=== PATIENT | male | born 1945 | race Caucasian/White ===

== ENCOUNTER 2017-01-26 21:27 | Emergency (ER) | payer MEDICARE, BC ==
--- NOTE | 2017-01-26 22:31 | EDM.PDOC ---
ED HPI GENERAL MEDICAL PROBLEM - General Chief Complaint: Eye Problems Stated Complaint: LIGHT HEADED Time Seen by Provider: 01/26/17 22:03 Source of Information: Reports: Patient History Limitations: Reports: No Limitations - History of Present Illness INITIAL COMMENTS - FREE TEXT/NARRATIVE: c/o visual change and neck pain lives alone, watching TV, pain at back of neck and head, not severe, had horizontal lines, could see okay, affected both eyes no n/v, not lightheaded, no CP, no sob h/o SVT 2009, on meds, no reoccurrence angiogram 2y ago was neg never smoked father smoker who age 56 from [place], mother smoker as well - Related Data Allergies Allergy/AdvReac Type Severity Reaction Status Date / Time Unable to Assess Allergy Unverified 01/26/17 21:42 Home Meds: Home Meds Atenolol [Atenolol] 100 mg PO DAILY 01/26/17 [History] Digoxin [Lanoxin] 125 mcg PO ASDIRECTED 01/26/17 [History] Doxazosin Mesylate [Cardura XL] 8 mg PO DAILY 01/26/17 [History] Omeprazole [Omeprazole] 20 mg PO ASDIRECTED 01/26/17 [History] Past Medical History HEENT History: Reports: Impaired Vision Other HEENT History: wears glasses Cardiovascular History: Reports: Afib, Hypertension Gastrointestinal History: Reports: GERD - Infectious Disease History Infectious Disease History: Reports: Chicken Pox, Measles Social & Family History - Family History Family Medical History: Noncontributory - Tobacco Use Smoking Status *Q: Never Smoker Second Hand Smoke Exposure: No - Caffeine Use Caffeine Use: Reports: Coffee - Recreational Drug Use Recreational Drug Use: No ED ROS GENERAL - Review of Systems Review Of Systems: See Below Constitutional: Reports: No Symptoms HEENT: Reports: Vision Change Respiratory: Reports: No Symptoms Cardiovascular: Reports: No Symptoms Endocrine: Reports: No Symptoms GI/Abdominal: Reports: No Symptoms : Reports: No Symptoms Musculoskeletal: Reports: Neck Pain Skin: Reports: No Symptoms Neurological: Reports: No Symptoms Psychiatric: Reports: No Symptoms Hematologic/Lymphatic: Reports: No Symptoms Immunologic: Reports: No Symptoms ED EXAM GENERAL W FULL EYE - Physical Exam Exam: See Below Exam Limited By: No Limitations General Appearance: Alert, WD/WN, No Apparent Distress, Anxious Eye Exam: Bilateral Eye: EOMI, Normal Fundi (nl vessels b/l, no hemorrhage, C:D 2:3), Normal Inspection Eyelids: Bilateral: Normal Appearance Conjunctiva & Sclera: Bilateral: Normal Appearance Cornea Exam: Bilateral: Normal Appearance Extraocular Movements: Bilateral: Intact Pupils: Normal Accommodation Pupillary Size: Bilateral: 4 mm Pupillary Reaction: Bilateral: Brisk Anterior Chamber: Bilateral: Normal Appearance Posterior Chamber: Bilateral: Normal Funduscopic Ears: Normal External Exam, Hearing Grossly Normal Nose: Normal Inspection, Normal Mucosa, No Blood Throat/Mouth: Normal Inspection, Normal Lips, Normal Teeth, Normal Gums, Normal Oropharynx, Normal Voice, No Airway Compromise Head: Atraumatic, Normocephalic Neck: Normal Inspection, Supple, Non-Tender, Full Range of Motion. No: Carotid Bruit Respiratory/Chest: No Respiratory Distress, Lungs Clear, Normal Breath Sounds, No Accessory Muscle Use, Chest Non-Tender Cardiovascular: Normal Peripheral Pulses, Regular Rate, Rhythm, No Edema, No Gallop, No Murmur, No Rub GI/Abdominal: Soft, Non-Tender Back Exam: Normal Inspection, Full Range of Motion, NT Extremities: Normal Inspection, Normal Range of Motion, Non-Tender, No Pedal Edema Neurological: Alert, Oriented, CN II-XII Intact, Normal Cognition, No Motor/ Sensory Deficits Psychiatric: Normal Affect, Normal Mood Skin Exam: Warm, Dry, Intact, Normal Color, No Rash Lymphatic: No Adenopathy Course - Vital Signs Last Recorded V/S: Last Vital Signs Temp 36.1 C 01/26/17 21:49 Pulse 66 01/26/17 21:49 Resp 16 01/26/17 21:49 BP 153/78 H 01/26/17 21:49 Pulse Ox 100 01/26/17 21:49 Orthostatic Blood Pressure [ 167/85 Standing] Orthostatic Blood Pressure [ 154/83 Sitting] Orthostatic Blood Pressure [ 156/81 Supine] - Orders/Labs/Meds Orders: Active Orders 24 hr Category Date Time Status EKG Documentation Completion [RC] ASDIRECTED Care 01/26/17 22:25 Active Orthostatic Vital Signs [RC] ASDIRECTED Care 01/26/17 22:25 Active Visual Acuity [Vision Test] [RC] ASDIRECTED Care 01/26/17 22:25 Active EKG 12 Lead [EK] Routine Ther 01/26/17 22:25 Ordered Labs: Laboratory Tests 01/26/17 01/26/17 01/26/17 Range/Units 22:45 22:45 22:45 WBC 6.1 (4.5-12.0) X10-3/uL RBC 4.77 (4.30-5.75) x10(6)uL Hgb 14.4 (11.5-15.5) g/dL Hct 41.9 (30.0-51.3) % MCV 87.9 (80-96) fL MCH 30.2 (27.7-33.6) pg MCHC 34.4 (32.2-35.4) g/dL RDW 12.9 (11.5-15.5) % Plt Count 167 (125-369) X10(3)uL MPV 7.7 (7.4-10.4) fL Neut % (Auto) 62.5 (46-82) % Lymph % (Auto) 24.0 (13-37) % [place] % (Auto) 9.3 (4-12) % Eos % (Auto) 4 (1.0-5.0) % Baso % (Auto) 1 (0-2) % Neut # (Auto) 3.8 (1.6-8.3) # Lymph # (Auto) 1.5 (0.6-5.0) # [place] # (Auto) 0.6 (0.0-1.3) # Eos # (Auto) 0.2 (0.0-0.8) # Baso # (Auto) 0.0 (0.0-0.2) # Sodium 142 (135-145) mmol/L Potassium 4.7 (3.5-5.3) mmol/L Chloride 105 (100-110) mmol/L Carbon Dioxide 30 (21-32) mmol/L BUN 15 (7-18) mg/dL Creatinine 1.0 (0.70-1.30) mg/dL Est Cr Clr Drug Dosing 76.57 mL/min Estimated GFR (MDRD) > 60 (>60) BUN/Creatinine Ratio 15.0 (9-20) Glucose 106 (80-116) mg/dL Calcium 9.0 (8.6-10.2) mg/dL Total Bilirubin 0.6 (0.1-1.3) mg/dL AST 16 (5-25) IU/L ALT 23 (12-36) U/L Alkaline Phosphatase 77 (56-112) IU/L Troponin I (<0.017-0.056) ng/mL C-Reactive Protein < 0.2 L (0.5-0.9) mg/dL Total Protein 6.9 (6.0-8.0) g/dL Albumin 3.8 (3.2-4.6) g/dL Globulin 3.1 g/dL Albumin/Globulin Ratio 1.2 01/26/17 Range/Units 22:45 WBC (4.5-12.0) X10-3/uL RBC (4.30-5.75) x10(6)uL Hgb (11.5-15.5) g/dL Hct (30.0-51.3) % MCV (80-96) fL MCH (27.7-33.6) pg MCHC (32.2-35.4) g/dL RDW (11.5-15.5) % Plt Count (125-369) X10(3)uL MPV (7.4-10.4) fL Neut % (Auto) (46-82) % Lymph % (Auto) (13-37) % [place] % (Auto) (4-12) % Eos % (Auto) (1.0-5.0) % Baso % (Auto) (0-2) % Neut # (Auto) (1.6-8.3) # Lymph # (Auto) (0.6-5.0) # [place] # (Auto) (0.0-1.3) # Eos # (Auto) (0.0-0.8) # Baso # (Auto) (0.0-0.2) # Sodium (135-145) mmol/L Potassium (3.5-5.3) mmol/L Chloride (100-110) mmol/L Carbon Dioxide (21-32) mmol/L BUN (7-18) mg/dL Creatinine (0.70-1.30) mg/dL Est Cr Clr Drug Dosing mL/min Estimated GFR (MDRD) (>60) BUN/Creatinine Ratio (9-20) Glucose (80-116) mg/dL Calcium (8.6-10.2) mg/dL Total Bilirubin (0.1-1.3) mg/dL AST (5-25) IU/L ALT (12-36) U/L Alkaline Phosphatase (56-112) IU/L Troponin I < 0.017 L (<0.017-0.056) ng/mL C-Reactive Protein (0.5-0.9) mg/dL Total Protein (6.0-8.0) g/dL Albumin (3.2-4.6) g/dL Globulin g/dL Albumin/Globulin Ratio - Re-Assessments/Exams Free Text/Narrative Re-Assessment/Exam: 01/26/17 23:32 CBC, CMP, CRP, trop, EKG all unremarkable. Not orthostatic, visual acuity wnl, eye grounds nl. Pt states changes were definitely b/l. Given slight WALTER, a transient occipital migraine would need to be considered. Will have pt f/u with optho and PCP Dr Pantoja. Typically sees Dr Pantoja yearly in March, also sees Dr Ramos at [facility] yearly in March. Departure - Departure Time of Disposition: 23:35 Disposition: Home, Self-Care 01 Condition: Good Clinical Impression: Transient visual disturbance, bilateral - Discharge Information Instructions: [place] Referrals: Hernan Brito MD [Primary Care Provider] - Forms: ED Department Discharge Additional Instructions: Call ophthomalogy in [place] tomorrow for a followup exam in the next [address] Pantoja in the next few days as well for his input. Return to ED if you are feeling worse. Call your Physician or Return to Emergency Department if: * Your condition worsens in any way. * You develop fever greater than 100.4. * You have vomitting that does not stop with medications. * You have pain that is not controlled with medications. - My Orders Last 24 Hours: My Active Orders 01/26/17 22:25 EKG Documentation Completion [RC] ASDIRECTED Orthostatic Vital Signs [RC] ASDIRECTED Visual Acuity [Vision Test] [RC] ASDIRECTED EKG 12 Lead [EK] Routine - Assessment/Plan Last 24 Hours: My Active Orders 01/26/17 22:25 EKG Documentation Completion [RC] ASDIRECTED Orthostatic Vital Signs [RC] ASDIRECTED Visual Acuity [Vision Test] [RC] ASDIRECTED EKG 12 Lead [EK] Routine
== END 2017-01-26 23:41 | disposition home or self-care (01) ==
LOC: FB.ED 21:27
DX: H53.9 Unspecified visual disturbance (principal); I10 Essential (primary) hypertension; K21.9 Gastro-esophageal reflux disease without esophagitis
CPT/HCPCS: 36415; 80053; 84484; 85025; 86140; 93005; 93010; 99283; 99284

== ENCOUNTER 2019-08-06 10:09 | Emergency (ER) | payer MEDICARE, BC ==
[2019-08-06] MEDS ORDERED: Acetaminophen/HYDROcodone 325-5 MG Tab PO ONE (10:10)
[2019-08-06] MEDS ORDERED: Ondansetron 4 MG Tab.DIS PO ONE (10:10)
[2019-08-06] MEDS ORDERED: Sodium Chloride 0.9% 10 ML Syringe FLUSH PRN (10:14)
[2019-08-06] MEDS ORDERED: Sodium Chloride 0.9% 1,000 ML IV ONE (10:14)
[2019-08-06] MEDS ORDERED: Ondansetron 4 MG/2 ML SDV IVPUSH ONE (10:30)
[2019-08-06] MEDS ORDERED: HYDROmorphone 2 MG/ML SDV IVPUSH ONE (10:30)
[2019-08-06] MEDS ORDERED: Pantoprazole 40 MG Vial IVPUSH ONE (10:30)
--- NOTE | 2019-08-06 10:41 | EDM.PDOC ---
ED HPI GENERAL MEDICAL PROBLEM - General Chief Complaint: Gastrointestinal Problem Stated Complaint: back pain Time Seen by Provider: 08/06/19 10:37 Source of Information: Reports: Patient, EMS History Limitations: Reports: No Limitations - History of Present Illness INITIAL COMMENTS - FREE TEXT/NARRATIVE: Patient developed sudden onset mid back pain radiating to abdomen @0630 today associated with nausea and diarrhea. No vomiting, chest pain or SOB. Denies prior h/o CAD, AAA, kidney stones, or gallstones. PMHx significant for HTN, Atrial fibrillation, and GERD. Onset Date: 08/06/19 Onset Time: 06:30 Location: Reports: Abdomen, Back Quality: Reports: Ache Severity: Severe back and abdomen Pain Score (Numeric/FACES): 10 - Related Data Allergies Allergy/AdvReac Type Severity Reaction Status Date / Time clindamycin Allergy Other Verified 08/06/19 13:22 sulfamethoxazole Allergy Other Verified 08/06/19 13:22 [From Bactrim] trimethoprim [From Bactrim] Allergy Other Verified 08/06/19 13:22 Home Meds: Home Meds Digoxin [Lanoxin] 0.25 mg PO ASDIRECTED 01/26/17 [History] Doxazosin Mesylate [Cardura XL] 8 mg PO DAILY 01/26/17 [History] atenoloL [Atenolol] 100 mg PO DAILY 01/26/17 [History] Acetaminophen/HYDROcodone [[place]cross 325-5 MG] 1 - 2 tab PO Q6H PRN #16 tab 08/06/19 [Rx] Acyclovir 800 mg PO DAILY 08/06/19 [History] Aspirin [Adult Low Dose Aspirin EC] 1 tab PO DAILY 08/06/19 [History] Multivitamin [Multivitamins] 1 tab PO DAILY 08/06/19 [History] Omeprazole 1 tab PO DAILY 08/06/19 [History] Ondansetron [Zofran ODT] 4 mg PO Q8H PRN #10 tab.dis 08/06/19 [Rx] Past Medical History HEENT History: Reports: Impaired Vision Other HEENT History: wears glasses Cardiovascular History: Reports: Afib, Hypertension Gastrointestinal History: Reports: GERD Dermatologic History: Reports: Other (See Below) Other Dermatologic History: skin cancer - Infectious Disease History Infectious Disease History: Reports: Chicken Pox, Measles Social & Family History - Family History Family Medical History: Noncontributory - Tobacco Use Smoking Status *Q: Never Smoker - Caffeine Use Caffeine Use: Reports: Coffee - Recreational Drug Use Recreational Drug Use: No ED ROS GENERAL - Review of Systems Review Of Systems: Comprehensive ROS is negative, except as noted in HPI. ED EXAM, GI/ABD - Physical Exam Exam: See Below Exam Limited By: No Limitations General Appearance: Alert Throat/Mouth: No Airway Compromise Head: Atraumatic, Normocephalic Respiratory/Chest: No Respiratory Distress, Lungs Clear, Normal Breath Sounds Cardiovascular: Regular Rate, Rhythm, No Murmur GI/Abdominal Exam: Normal Bowel Sounds, Soft, No Distention, Tender (RUQ) Back Exam: Normal Inspection. No: CVA Tenderness (R), CVA Tenderness (L), Paraspinal Tenderness, Vertebral Tenderness Extremities: Normal Range of Motion Neurological: Alert, Normal Cognition Psychiatric: Normal Affect, Normal Mood EKG INTERPRETATION EKG Date: 08/06/19 Time: 10:48 Rhythm: Other (sinus bradycardia) Rate (Beats/Min): 44 [place]: Normal P-Wave: Present QRS: Normal ST-T: Normal QT: Normal Course - Vital Signs Last Recorded V/S: Last Vital Signs Temp 36.6 C 08/06/19 10:09 Pulse 57 L 08/06/19 10:09 Resp 14 08/06/19 10:09 BP 170/90 H 08/06/19 10:09 Pulse Ox 100 08/06/19 10:09 - Orders/Labs/Meds Orders: Active Orders 24 hr Category Date Time Status EKG Documentation Completion [RC] ASDIRECTED Care 08/06/19 10:30 Active Ang Abdomen [CT] Stat Exams 08/06/19 12:06 Taken Ang Chest [CT] Stat Exams 08/06/19 10:45 Taken Sodium Chloride 0.9% [Saline Flush] Med 08/06/19 10:14 Active 10 ml FLUSH ASDIRECTED PRN Saline Lock Insert [OM.PC] Routine Oth 08/06/19 10:14 Ordered EKG 12 Lead [EK] Routine Ther 08/06/19 10:29 Ordered Medication Orders Sodium Chloride (Saline Flush) 10 ml FLUSH ASDIRECTED PRN PRN Reason: Keep Vein Open Labs: Laboratory Tests 08/06/19 08/06/19 08/06/19 Range/Units 10:30 10:30 10:30 WBC 6.9 (4.5-12.0) X10-3/uL RBC 4.65 (4.30-5.75) x10(6)uL Hgb 13.8 (13.5-17.8) g/dL Hct 41.6 (30.0-51.3) % MCV 89.3 (80-96) fL MCH 29.6 (27.7-33.6) pg MCHC 33.1 (32.2-35.4) g/dL RDW 13.2 (11.5-15.5) % Plt Count 143 (125-369) X10(3)uL MPV 7.1 L (7.4-10.4) fL Neut % (Auto) 78.6 (46-82) % Lymph % (Auto) 14.3 (13-37) % [place] % (Auto) 3.9 L (4-12) % Eos % (Auto) 1 (1.0-5.0) % Baso % (Auto) 2 (0-2) % Neut # (Auto) 5.3 (1.6-8.3) # Lymph # (Auto) 1.0 (0.6-5.0) # [place] # (Auto) 0.3 (0.0-1.3) # Eos # (Auto) 0.1 (0.0-0.8) # Baso # (Auto) 0.2 (0.0-0.2) # PT (9.0-11.1) sec INR (1.00-1.24) APTT (24.4-33.2) SECONDS Sodium 143 (135-145) mmol/L Potassium 3.9 (3.5-5.3) mmol/L Chloride 107 (100-110) mmol/L Carbon Dioxide 27 (21-32) mmol/L BUN 13 (7-18) mg/dL Creatinine 1.2 (0.70-1.30) mg/dL Est Cr Clr Drug Dosing TNP Estimated GFR (MDRD) 59 L (>60) BUN/Creatinine Ratio 10.8 (9-20) Glucose 140 H (80-116) mg/dL Calcium 8.8 (8.6-10.2) mg/dL Total Bilirubin 0.5 (0.1-1.3) mg/dL AST 15 (5-25) IU/L ALT 21 (12-36) U/L Alkaline Phosphatase 83 (56-112) IU/L Troponin I (4.0-60.3) pg/mL Total Protein 6.5 (6.0-8.0) g/dL Albumin 3.8 (3.2-4.6) g/dL Globulin 2.7 g/dL Albumin/Globulin Ratio 1.4 Lipase 121 (73-393) U/L Urine Color (YELLOW) Urine Appearance (CLEAR) Urine pH (5.0-6.5) Ur Specific [place] (1.010-1.025) Urine Protein (NEGATIVE) mg/dL Urine Glucose (UA) (NORMAL) mg/dL Urine Ketones (NEGATIVE) mg/dL Urine Occult Blood (NEGATIVE) Urine Nitrite (NEGATIVE) Urine Bilirubin (NEGATIVE) Urine Urobilinogen (NEGATIVE) mg/dL Ur Leukocyte Esterase (NEGATIVE) Urine RBC (0-5) Urine WBC (0-5) Ur Squamous Epith Cells (NS,R,O) Urine Bacteria (NS) Digoxin (<0.2) ng/mL 08/06/19 08/06/19 08/06/19 Range/Units 10:30 10:30 10:30 WBC (4.5-12.0) X10-3/uL RBC (4.30-5.75) x10(6)uL Hgb (13.5-17.8) g/dL Hct (30.0-51.3) % MCV (80-96) fL MCH (27.7-33.6) pg MCHC (32.2-35.4) g/dL RDW (11.5-15.5) % Plt Count (125-369) X10(3)uL MPV (7.4-10.4) fL Neut % (Auto) (46-82) % Lymph % (Auto) (13-37) % [place] % (Auto) (4-12) % Eos % (Auto) (1.0-5.0) % Baso % (Auto) (0-2) % Neut # (Auto) (1.6-8.3) # Lymph # (Auto) (0.6-5.0) # [place] # (Auto) (0.0-1.3) # Eos # (Auto) (0.0-0.8) # Baso # (Auto) (0.0-0.2) # PT 9.9 (9.0-11.1) sec INR 0.91 L (1.00-1.24) APTT 25.4 (24.4-33.2) SECONDS Sodium (135-145) mmol/L Potassium (3.5-5.3) mmol/L Chloride (100-110) mmol/L Carbon Dioxide (21-32) mmol/L BUN (7-18) mg/dL Creatinine (0.70-1.30) mg/dL Est Cr Clr Drug Dosing Estimated GFR (MDRD) (>60) BUN/Creatinine Ratio (9-20) Glucose (80-116) mg/dL Calcium (8.6-10.2) mg/dL Total Bilirubin (0.1-1.3) mg/dL AST (5-25) IU/L ALT (12-36) U/L Alkaline Phosphatase (56-112) IU/L Troponin I 9.4 (4.0-60.3) pg/mL Total Protein (6.0-8.0) g/dL Albumin (3.2-4.6) g/dL Globulin g/dL Albumin/Globulin Ratio Lipase (73-393) U/L Urine Color (YELLOW) Urine Appearance (CLEAR) Urine pH (5.0-6.5) Ur Specific [place] (1.010-1.025) Urine Protein (NEGATIVE) mg/dL Urine Glucose (UA) (NORMAL) mg/dL Urine Ketones (NEGATIVE) mg/dL Urine Occult Blood (NEGATIVE) Urine Nitrite (NEGATIVE) Urine Bilirubin (NEGATIVE) Urine Urobilinogen (NEGATIVE) mg/dL Ur Leukocyte Esterase (NEGATIVE) Urine RBC (0-5) Urine WBC (0-5) Ur Squamous Epith Cells (NS,R,O) Urine Bacteria (NS) Digoxin 1.2 (<0.2) ng/mL 08/06/19 08/06/19 Range/Units 11:54 13:15 WBC (4.5-12.0) X10-3/uL RBC (4.30-5.75) x10(6)uL Hgb (13.5-17.8) g/dL Hct (30.0-51.3) % MCV (80-96) fL MCH (27.7-33.6) pg MCHC (32.2-35.4) g/dL RDW (11.5-15.5) % Plt Count (125-369) X10(3)uL MPV (7.4-10.4) fL Neut % (Auto) (46-82) % Lymph % (Auto) (13-37) % [place] % (Auto) (4-12) % Eos % (Auto) (1.0-5.0) % Baso % (Auto) (0-2) % Neut # (Auto) (1.6-8.3) # Lymph # (Auto) (0.6-5.0) # [place] # (Auto) (0.0-1.3) # Eos # (Auto) (0.0-0.8) # Baso # (Auto) (0.0-0.2) # PT (9.0-11.1) sec INR (1.00-1.24) APTT (24.4-33.2) SECONDS Sodium (135-145) mmol/L Potassium (3.5-5.3) mmol/L Chloride (100-110) mmol/L Carbon Dioxide (21-32) mmol/L BUN (7-18) mg/dL Creatinine (0.70-1.30) mg/dL Est Cr Clr Drug Dosing Estimated GFR (MDRD) (>60) BUN/Creatinine Ratio (9-20) Glucose (80-116) mg/dL Calcium (8.6-10.2) mg/dL Total Bilirubin (0.1-1.3) mg/dL AST (5-25) IU/L ALT (12-36) U/L Alkaline Phosphatase (56-112) IU/L Troponin I 12.9 (4.0-60.3) pg/mL Total Protein (6.0-8.0) g/dL Albumin (3.2-4.6) g/dL Globulin g/dL Albumin/Globulin Ratio Lipase (73-393) U/L Urine Color Yellow (YELLOW) Urine Appearance Clear (CLEAR) Urine pH 7.0 H (5.0-6.5) Ur Specific [place] 1.005 L (1.010-1.025) Urine Protein Negative (NEGATIVE) mg/dL Urine Glucose (UA) Normal (NORMAL) mg/dL Urine Ketones Negative (NEGATIVE) mg/dL Urine Occult Blood Negative (NEGATIVE) Urine Nitrite Negative (NEGATIVE) Urine Bilirubin Negative (NEGATIVE) Urine Urobilinogen Normal (NEGATIVE) mg/dL Ur Leukocyte Esterase Negative (NEGATIVE) Urine RBC 0-5 (0-5) Urine WBC 0-5 (0-5) Ur Squamous Epith Cells Rare (NS,R,O) Urine Bacteria Rare H (NS) Digoxin (<0.2) ng/mL Meds: Medications Generic Name Dose Route Start Last Admin Trade Name Freq PRN Reason Stop Dose Admin Sodium Chloride 10 ml 08/06/19 10:14 Saline Flush FLUSH ASDIRECTED PRN Keep Vein Open Discontinued Medications Generic Name Dose Route Start Last Admin Trade Name Freq PRN Reason Stop Dose Admin Hydromorphone HCl 1 mg 08/06/19 10:30 08/06/19 10:37 Dilaudid IVPUSH 08/06/19 10:31 1 mg ONETIME ONE Administration Sodium Chloride 1,000 mls @ 999 mls/hr 08/06/19 10:14 08/06/19 10:38 Normal Saline IV 08/06/19 11:14 999 mls/hr .BOLUS ONE Administration Iopamidol 100 ml 08/06/19 11:00 08/06/19 11:21 Isovue-370 (76%) IV 08/06/19 11:01 100 ml . DIRECTED ONE Administration Ketorolac Tromethamine 30 mg 08/06/19 13:20 08/06/19 13:25 Toradol IM 08/06/19 13:21 30 mg ONETIME ONE Administration Ondansetron HCl 4 mg 08/06/19 10:30 08/06/19 10:37 Zofran IVPUSH 08/06/19 10:31 4 mg ONETIME ONE Administration Pantoprazole Sodium 40 mg 08/06/19 10:30 08/06/19 10:37 Protonix Iv IVPUSH 08/06/19 10:31 40 mg ONETIME ONE Administration - Radiology Interpretation Free Text/Narrative:: Study: CT Chest Angio -08/06/2019 11:32:15 AM Ordering Physician: ROYCE Final Report: INDICATION: Back and abdominal pain. TECHNIQUE: 100 mL Isovue-370 IV contrast with arterial imaging of the chest. FINDINGS: Aortic caliber is normal with no dissection. No central pulmonary artery filling defect with suboptimal assessment of peripheral vessels. No pathologic mediastinal or hilar adenopathy. No pericardial or pleural effusion. No bone finding of significance. Lung parenchyma is clear other than minor hazy atelectasis in the dependent right greater than left costophrenic angles. IMPRESSION: Normal aorta with no source identified for back or abdominal pain. Please note that all CT scans at this facility use dose modulation, iterative reconstruction, and/or weight-based dosing when appropriate to reduce radiation dose to as low as reasonably achievable. Dictated by Henry Almonte MD @ Aug 06 2019 11:52AM (Electronic Signature) Study: CT Abdomen Angio -08/06/2019 11:32:39 AM Ordering Physician: ROYCE Final Report: INDICATION: Abdominal pain. TECHNIQUE: 100 mL Isovue-370 IV contrast with arterial imaging. FINDINGS: Normal caliber of widely patent aorta with minor atherosclerosis distally. No dissection. Retroperitoneal and mesenteric branches are widely patent. Small flash of arterial hyperenhancement in posterior segment 7 of the liver may be hemangioma or transient hepatic attenuation difference. No suspicious features. Solid viscera otherwise normal. Hollow viscera appear unremarkable. No appendix is visualized. Urinary bladder is normal. Minor degenerative disc disease in the spine. Schmorl`s nodes L2 inferior endplate. IMPRESSION: No aortic dissection. No definite source for abdominal pain identified. Please note that all CT scans at this facility use dose modulation, iterative reconstruction, and/or weight-based dosing when appropriate to reduce radiation dose to as low as reasonably achievable. Dictated by Henry Almonte MD @ Aug 06 2019 11:57AM (Electronic Signature) - Re-Assessments/Exams Free Text/Narrative Re-Assessment/Exam: 08/06/19 14:07 Symptoms improved after Dilaudid, Zofran, Protonix, and Toradol. 08/06/19 14:08 Patient discharged with [place] and Zofran starter packs. Departure - Departure Time of Disposition: 14:11 Disposition: Home, Self-Care 01 Condition: Good Clinical Impression: Biliary colic - Discharge Information *PRESCRIPTION DRUG MONITORING PROGRAM REVIEWED*: Yes *COPY OF PRESCRIPTION DRUG MONITORING REPORT IN PATIENT MARIZA: No Prescriptions: Acetaminophen/HYDROcodone [[place] 325-5 MG] 1 - 2 tab PO Q6H PRN #16 tab PRN Reason: Pain Ondansetron [Zofran ODT] 4 mg PO Q8H PRN #10 tab.dis PRN Reason: Nausea/Vomiting Instructions: Biliary Colic, Adult, Gallbladder Eating Plan Referrals: Hernan Brito MD [Primary Care Provider] - 2 Days Forms: ED Department Discharge Additional Instructions: Fill the prescriptions for [place] and Zofran and take as directed. Avoid spicy and fatty foods. Follow up tomorrow @0800 for a gallbladder ultrasound. Do not eat or drink anything after midnight. Follow up with your primary physician in 2 days. Return to the ER if symptoms worsen. Sepsis Event Note (ED) - Evaluation Sepsis Screening Result: No Definite Risk - Focused Exam Vital Signs: Vital Signs Temp Pulse Resp BP Pulse Ox 08/06/19 10:09 36.6 C 57 L 14 170/90 H 100 - My Orders Last 24 Hours: My Active Orders 08/06/19 10:14 Sodium Chloride 0.9% [Saline Flush] 10 ml FLUSH ASDIRECTED PRN Saline Lock Insert [OM.PC] Routine 08/06/19 10:29 EKG 12 Lead [EK] Routine 08/06/19 10:30 EKG Documentation Completion [RC] ASDIRECTED 08/06/19 10:45 Ang Chest [CT] Stat 08/06/19 12:06 Ang Abdomen [CT] Stat - Assessment/Plan Last 24 Hours: My Active Orders 08/06/19 10:14 Sodium Chloride 0.9% [Saline Flush] 10 ml FLUSH ASDIRECTED PRN Saline Lock Insert [OM.PC] Routine 08/06/19 10:29 EKG 12 Lead [EK] Routine 08/06/19 10:30 EKG Documentation Completion [RC] ASDIRECTED 08/06/19 10:45 Ang Chest [CT] Stat 08/06/19 12:06 Ang Abdomen [CT] Stat
[2019-08-06] MEDS ORDERED: Iopamidol 755 Mg/ML 100 ML Bottle IV ONE (11:00)
[2019-08-06] MEDS ORDERED: Ketorolac 30 MG/ML SDV IM ONE (13:20)
== END 2019-08-06 14:45 | disposition home or self-care (01) ==
LOC: FB.ED 10:09
DX: K80.50 Calculus of bile duct without cholangitis or cholecystitis without obstruction (principal); R19.7 Diarrhea, unspecified; I10 Essential (primary) hypertension; I48.91 Unspecified atrial fibrillation; K21.9 Gastro-esophageal reflux disease without esophagitis; Z88.2 Allergy status to sulfonamides; Z88.1 Allergy status to other antibiotic agents; Z79.899 Other long term (current) drug therapy; Z79.82 Long term (current) use of aspirin
CPT/HCPCS: 36415; 71275; 74175; 80053; 80162; 81001; 83690; 84484; 85025; 85610; 85730; 93005; 96361; 96372; 96374; 96375; 99285; A9270; C9113; J1170; J1885; J2405; J7030; Q9967; 93010; 99283

== ENCOUNTER 2023-06-15 19:57 | Emergency (ER) | payer OTHER, MEDICARE ==
[2023-06-15 20:37] LABS: BASOPHILS PERCENT AUTO 0.3 % (0.3-3.8); EOSINOPHILS ABSOLUTE AUTO 0.2 x10-3/uL (0.0-0.6); EOSINOPHILS PERCENT AUTO 2.9 % (0.1-6.8); HEMATOCRIT 38.2 % (38.3-50.1); LYMPHOCYTES ABSOLUTE AUTO 1.5 x10-3/uL (0.5-4.5); LYMPHOCYTES PERCENT AUTO 26.7 % (15.8-45.3); MEAN CORPUSCULAR HEMOGLOBIN 30.4 pg (27.0-33.3); MEAN CORPUSCULAR VOLUME 89.3 fL (80.8-98.7); MEAN PLATELET VOLUME 7.3 fL (6.7-11.0); MONOCYTES ABSOLUTE AUTO 0.5 x10-3/uL (0.0-1.2); MONOCYTES PERCENT AUTO 8.7 % (5.5-15.2); NEUTROPHILS ABSOLUTE AUTO 3.5 x10-3/uL (1.7-6.9); NEUTROPHILS PERCENT AUTO 61.4 % (40.3-71.8); PLATELET COUNT,PLT 137 x10(3)uL (117-477); RED BLOOD CELL COUNT 4.28 x10(6)uL (3.90-5.90); WHITE BLOOD CELL COUNT,WBC 5.7 x10-3/uL (3.2-10.1)
[2023-06-15 20:39] LABS: BLOOD UREA NITROGEN,BUN 23 mg/dL (7-18); BUN/CREATININE RATIO 19.2 (9-20); CALCIUM 8.7 mg/dL (8.6-10.2); CARBON DIOXIDE,CO2 26 mmol/L (21-32); CHLORIDE,CL 108 mmol/L (100-110); CREATININE 1.2 mg/dL (0.70-1.30); EST CRCL DRUG DOSING (CG) 57.34 mL/min; ESTIMATED GFR 62 mL/min (>60); GLUCOSE RANDOM 105 mg/dL (80-116); POTASSIUM,K 4.1 mmol/L (3.5-5.3); SODIUM,NA 143 mmol/L (135-145)
[2023-06-15 20:45] LABS: A/G RATIO 1.1; ALANINE AMINOTRANSFERASE,ALT 20 U/L (12-36); ALBUMIN 3.4 g/dL (3.2-4.6); ALKALINE PHOSPHATASE 82 IU/L (56-112); ASPARTATE AMNIOTRANSFERASE,AST 13 IU/L (5-25); BILIRUBIN TOTAL 0.5 mg/dL (0.1-1.3); PROTEIN TOTAL,TP 6.4 g/dL (6.0-8.0)
[2023-06-15 20:51] LABS: DIGOXIN 0.4 ng/mL (<0.2); TROPONIN I 9.2 pg/mL (4.0-60.3)
[2023-06-15 21:07] LABS: INFLUENZA A NAA NEGATIVE (NEGATIVE); INFLUENZA B NAA NEGATIVE (NEGATIVE); RESPIRATORY SYNCYTIAL VIR NAA NEGATIVE (NEGATIVE)
[2023-06-15 21:08] LABS: CORONAVIRUS COVID-19 NAA NEGATIVE (NEGATIVE)
== END 2023-06-15 21:48 | disposition home or self-care (01) ==
LOC: FB.ED 19:57
DX: R07.9 Chest pain, unspecified (principal); R00.2 Palpitations; R06.89 Other abnormalities of breathing; I10 Essential (primary) hypertension; K21.9 Gastro-esophageal reflux disease without esophagitis; Z88.8 Allergy status to other drugs, medicaments and biological substances; Z79.82 Long term (current) use of aspirin; Z79.899 Other long term (current) drug therapy
CPT/HCPCS: 0241U; 71045; 80053; 80162; 83880; 84484; 85025; 93005; 93010; 99283; 99285

== ENCOUNTER 2023-08-20 21:04 | Emergency (ER) | payer OTHER, MEDICARE ==
[2023-08-20 21:30] LABS: BASOPHILS PERCENT AUTO 0.4 % (0.3-3.8); EOSINOPHILS ABSOLUTE AUTO 0.2 x10-3/uL (0.0-0.6); EOSINOPHILS PERCENT AUTO 2.7 % (0.1-6.8); HEMATOCRIT 38.9 % (38.3-50.1); HEMOGLOBIN 13.5 g/dL (12.9-17.7); LYMPHOCYTES ABSOLUTE AUTO 1.7 x10-3/uL (0.5-4.5); LYMPHOCYTES PERCENT AUTO 29.1 % (15.8-45.3); MEAN CORPUSCULAR HGB CONC 34.6 g/dL (28.7-35.3); MEAN CORPUSCULAR VOLUME 89.7 fL (80.8-98.7); MEAN PLATELET VOLUME 7.7 fL (6.7-11.0); MONOCYTES ABSOLUTE AUTO 0.5 x10-3/uL (0.0-1.2); MONOCYTES PERCENT AUTO 8.8 % (5.5-15.2); NEUTROPHILS ABSOLUTE AUTO 3.4 x10-3/uL (1.7-6.9); PLATELET COUNT,PLT 122 x10(3)uL (117-477); RED BLOOD CELL COUNT 4.34 x10(6)uL (3.90-5.90); RED CELL DISTRIBUTION WIDTH 14.2 % (12.4-15.0); WHITE BLOOD CELL COUNT,WBC 5.7 x10-3/uL (3.2-10.1)
[2023-08-20 21:32] LABS: BLOOD UREA NITROGEN,BUN 21 mg/dL (7-18); CALCIUM 8.4 mg/dL (8.6-10.2); CARBON DIOXIDE,CO2 25 mmol/L (21-32); CHLORIDE,CL 108 mmol/L (100-110); CREATININE 1.4 mg/dL (0.70-1.30); ESTIMATED GFR 51 mL/min (>60); GLUCOSE RANDOM 157 mg/dL (80-116); POTASSIUM,K 3.6 mmol/L (3.5-5.3); SODIUM,NA 143 mmol/L (135-145)
[2023-08-20 21:38] LABS: A/G RATIO 1.3; ALANINE AMINOTRANSFERASE,ALT 30 U/L (12-36); ALBUMIN 3.6 g/dL (3.2-4.6); ALKALINE PHOSPHATASE 95 IU/L (56-112); ASPARTATE AMNIOTRANSFERASE,AST 23 IU/L (5-25); BILIRUBIN TOTAL 0.6 mg/dL (0.1-1.3); PROTEIN TOTAL,TP 6.3 g/dL (6.0-8.0)
== END 2023-08-20 22:24 | disposition home or self-care (01) ==
LOC: FB.ED 21:04
DX: I47.10 Supraventricular tachycardia, unspecified (principal); I10 Essential (primary) hypertension; K21.9 Gastro-esophageal reflux disease without esophagitis; Z90.49 Acquired absence of other specified parts of digestive tract; Z79.82 Long term (current) use of aspirin; Z79.899 Other long term (current) drug therapy; Z88.1 Allergy status to other antibiotic agents; Z88.2 Allergy status to sulfonamides
CPT/HCPCS: 36415; 80053; 84484; 85025; 93005; 99285

== ENCOUNTER 2023-09-01 21:17 | Emergency (ER) | payer OTHER, MEDICARE ==
[2023-09-01 21:37] LABS: BASOPHILS PERCENT AUTO 0.4 % (0.3-3.8); EOSINOPHILS ABSOLUTE AUTO 0.2 x10-3/uL (0.0-0.6); EOSINOPHILS PERCENT AUTO 2.8 % (0.1-6.8); HEMATOCRIT 39.4 % (38.3-50.1); LYMPHOCYTES ABSOLUTE AUTO 1.5 x10-3/uL (0.5-4.5); MEAN CORPUSCULAR HEMOGLOBIN 31.4 pg (27.0-33.3); MEAN CORPUSCULAR HGB CONC 35.6 g/dL (28.7-35.3); MEAN CORPUSCULAR VOLUME 88.3 fL (80.8-98.7); MEAN PLATELET VOLUME 7.5 fL (6.7-11.0); MONOCYTES ABSOLUTE AUTO 0.6 x10-3/uL (0.0-1.2); MONOCYTES PERCENT AUTO 9.3 % (5.5-15.2); NEUTROPHILS ABSOLUTE AUTO 4.1 x10-3/uL (1.7-6.9); NEUTROPHILS PERCENT AUTO 63.5 % (40.3-71.8); PLATELET COUNT,PLT 127 x10(3)uL (117-477); RED BLOOD CELL COUNT 4.47 x10(6)uL (3.90-5.90); RED CELL DISTRIBUTION WIDTH 14.1 % (12.4-15.0); WHITE BLOOD CELL COUNT,WBC 6.4 x10-3/uL (3.2-10.1)
[2023-09-01 21:39] LABS: BLOOD UREA NITROGEN,BUN 27 mg/dL (7-18); CALCIUM 8.4 mg/dL (8.6-10.2); CARBON DIOXIDE,CO2 22 mmol/L (21-32); CHLORIDE,CL 108 mmol/L (100-110); CREATININE 1.8 mg/dL (0.70-1.30); EST CRCL DRUG DOSING (CG) 37.12 mL/min; ESTIMATED GFR 38 mL/min (>60); GLUCOSE RANDOM 165 mg/dL (80-116); POTASSIUM,K 3.8 mmol/L (3.5-5.3); SODIUM,NA 142 mmol/L (135-145)
[2023-09-01 21:45] LABS: A/G RATIO 1.3; ALANINE AMINOTRANSFERASE,ALT 29 U/L (12-36); ALBUMIN 3.7 g/dL (3.2-4.6); ALKALINE PHOSPHATASE 108 IU/L (56-112); ASPARTATE AMNIOTRANSFERASE,AST 25 IU/L (5-25); BILIRUBIN TOTAL 0.7 mg/dL (0.1-1.3); MAGNESIUM 1.5 mg/dL (1.8-2.5); PROTEIN TOTAL,TP 6.5 g/dL (6.0-8.0)
[2023-09-01] MEDS: Sodium Chloride 0.9% 10 ML Syringe FLUSH PRN (21:49)
[2023-09-01] MEDS: Adenosine 6 MG/2 ML SDV IVPUSH ONE ×2 (21:49→21:57)
[2023-09-01] MEDS: Sodium Chloride 0.9% 1,000 ML IV SCH (22:18)
[2023-09-01] MEDS: Magnesium Sulfate/Water 50 ML IV ONE (22:42)
== END 2023-09-02 00:30 | disposition home or self-care (01) ==
LOC: FB.ED 21:17
DX: I47.10 Supraventricular tachycardia, unspecified (principal); E86.0 Dehydration; E83.42 Hypomagnesemia; I10 Essential (primary) hypertension; K21.9 Gastro-esophageal reflux disease without esophagitis; Z90.49 Acquired absence of other specified parts of digestive tract; Z79.899 Other long term (current) drug therapy; Z79.82 Long term (current) use of aspirin; Z88.2 Allergy status to sulfonamides; Z88.1 Allergy status to other antibiotic agents; Z88.8 Allergy status to other drugs, medicaments and biological substances
CPT/HCPCS: 36415; 80053; 83735; 84484; 85025; 93005; 93010; 96361; 96365; 96375; 99284; 99285; J0153; J3475; J3490; J7030

== ENCOUNTER 2024-03-20 08:46 | Emergency (ER) | payer MEDICARE, OTHER ==
[2024-03-20 09:33] LABS: BLOOD UREA NITROGEN,BUN 20 mg/dL (7-18); BUN/CREATININE RATIO 16.7 (9-20); CARBON DIOXIDE,CO2 27 mmol/L (21-32); CHLORIDE,CL 107 mmol/L (100-110); CREATININE 1.2 mg/dL (0.70-1.30); ESTIMATED GFR 62 mL/min (>60); GLUCOSE RANDOM 108 mg/dL (80-116); POTASSIUM,K 4.1 mmol/L (3.5-5.3); SODIUM,NA 140 mmol/L (135-145)
[2024-03-20 09:34] LABS: BASOPHILS PERCENT AUTO 0.5 % (0.3-3.8); EOSINOPHILS ABSOLUTE AUTO 0.2 x10-3/uL (0.0-0.6); EOSINOPHILS PERCENT AUTO 3.2 % (0.1-6.8); HEMATOCRIT 38.4 % (38.3-50.1); HEMOGLOBIN 13.6 g/dL (12.9-17.7); LYMPHOCYTES PERCENT AUTO 21.8 % (15.8-45.3); MEAN CORPUSCULAR HEMOGLOBIN 31.3 pg (27.0-33.3); MEAN CORPUSCULAR HGB CONC 35.5 g/dL (28.7-35.3); MEAN CORPUSCULAR VOLUME 88.2 fL (80.8-98.7); MEAN PLATELET VOLUME 7.1 fL (6.7-11.0); MONOCYTES ABSOLUTE AUTO 0.4 x10-3/uL (0.0-1.2); MONOCYTES PERCENT AUTO 7.9 % (5.5-15.2); NEUTROPHILS ABSOLUTE AUTO 3.2 x10-3/uL (1.7-6.9); NEUTROPHILS PERCENT AUTO 66.6 % (40.3-71.8); PLATELET COUNT,PLT 139 x10(3)uL (117-477); RED BLOOD CELL COUNT 4.35 x10(6)uL (3.90-5.90); RED CELL DISTRIBUTION WIDTH 14.3 % (12.4-15.0); WHITE BLOOD CELL COUNT,WBC 4.8 x10-3/uL (3.2-10.1)
[2024-03-20 09:38] LABS: A/G RATIO 1.2; ALANINE AMINOTRANSFERASE,ALT 19 U/L (12-36); ALBUMIN 3.5 g/dL (3.2-4.6); ALKALINE PHOSPHATASE 101 IU/L (56-112); ASPARTATE AMNIOTRANSFERASE,AST 18 IU/L (5-25); BILIRUBIN TOTAL 0.7 mg/dL (0.1-1.3); PROTEIN TOTAL,TP 6.4 g/dL (6.0-8.0)
[2024-03-20] MEDS ORDERED: Furosemide 40 MG Tab PO ONE (12:17)
== END 2024-03-20 10:00 | disposition home or self-care (01) ==
LOC: FB.ED 08:46
DX: I49.3 Ventricular premature depolarization (principal); I10 Essential (primary) hypertension; I48.91 Unspecified atrial fibrillation; K21.9 Gastro-esophageal reflux disease without esophagitis; Z88.1 Allergy status to other antibiotic agents; Z88.2 Allergy status to sulfonamides; Z79.82 Long term (current) use of aspirin; Z79.899 Other long term (current) drug therapy; Z90.49 Acquired absence of other specified parts of digestive tract
CPT/HCPCS: 36415; 80053; 84484; 85025; 85379; 93005; 99285